=== PATIENT | male | born 1970 | race American Indian/Alaskan Native ===

== ENCOUNTER 2018-01-07 16:17 | Inpatient (IN) | payer MEDICARE ==
--- NOTE | 2018-01-07 17:12 | C.PDOC ---
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 Patient states that he snorts about 10-12 bags of heroin each day for the past 1 year. Patient reports that he had 1 psychiatric admission for a suicide attempt. Denies having headache, fever, chills, nausea, and vomiting. Time Seen by Provider: 01/07/18 16:39 Chief Complaint (Nursing): Substance Abuse History Per: Patient History/Exam Limitations: no limitations Past Medical History Reviewed: Historical Data, Nursing Documentation, Vital Signs Vital Signs: Last Vital Signs Temp 99.4 F 01/07/18 17:09 Pulse 90 01/07/18 17:09 Resp 16 01/07/18 17:09 BP 143/90 01/07/18 17:09 Pulse Ox 97 01/07/18 17:14 - Medical History PMH: HTN, Post Traumatic Stress Disorder Other Surgeries: Hx of surgeries Family History: States: No Known Family Hx - Social History Hx Alcohol Use: Yes Hx Substance Use: Yes - Immunization History Hx Tetanus Toxoid Vaccination: No Hx Influenza Vaccination: Yes (05/2017) Hx Pneumococcal Vaccination: Yes (05/2017) Review Of Systems Except As Marked, All Systems Reviewed And Found Negative. Constitutional: Negative for: Fever, Chills Gastrointestinal: Negative for: Nausea, Vomiting Neurological: Negative for: Headache Physical Exam - Physical Exam Appears: No Acute Distress Skin: Normal Color, Warm, Dry Head: Atraumatic, Normacephalic Eye(s): bilateral: Normal Inspection Nose: Normal Oral Mucosa: Moist Neck: Supple Chest: Symmetrical Cardiovascular: Rhythm Regular Respiratory: Normal Breath Sounds, No Rales, No Rhonchi, No Wheezing Gastrointestinal/Abdominal: Normal Exam, Soft, No Tenderness Neurological/Psych: Oriented x3, Normal Speech ED Course And Treatment - Laboratory Results Result Diagrams: 01/07/18 17:04 01/07/18 17:04 O2 Sat by Pulse Oximetry: 97 (RA) Pulse Ox Interpretation: Normal Medical Decision Making Medical Decision Making: Plan: --Labs --UA Disposition Counseled Patient/Family Regarding: Studies Performed, Diagnosis - Disposition Disposition: HOME/ ROUTINE Disposition Time: 18:01 Condition: STABLE Forms: [facility] (Namibian) - Clinical Impression Clinical Impression: Drug dependence - Scribe Statement The provider has reviewed the documentation as recorded by the Scribe Summen Jai Provider Attestation: All medical record entries made by the Lacie were at my direction and personally dictated by me. I have reviewed the chart and agree that the record accurately reflects my personal performance of the history, physical exam, medical decision making, and the department course for this patient. I have also personally directed, reviewed, and agree with the discharge instructions and disposition. Decision To Admit - Pt Status Changed To: Hospital Disposition Of: Inpatient - Admit Certification Admit to Inpatient:: After my assessment, the patient will require hospitalization for at least two midnights. This is because of the severity of symptoms shown, intensity of services needed, and/or the medical risk in this patient being treated as an outpatient. - InPatient: Physician Admission Certification: I certify that this patient requires 2 or more midnights of care for the following reason:: needs inpatient detox - . Bed Request Type: Detox Patient Diagnosis: Drug dependence
[2018-01-07 17:23] LABS: ALB/GLOB RATIO 1.1 (1.0-2.1); ALBUMIN 4.4 g/dL (3.5-5.0); ALT/SGPT 24 U/L (21-72); AST/SGOT 26 U/L (17-59); BLOOD UREA NITROGEN 15 mg/dL (9-20); CALCIUM 9.3 mg/dl (8.6-10.4); GFR AFRICAN-AMERICAN > 60; GFR NON-AFRICAN AMERICAN > 60
[2018-01-07 17:24] LABS: BASO # 0.1 K/uL (0.0-0.2); BASO % 0.8 % (0.0-2.0); EOS # 0.1 K/uL (0.0-0.7); EOS % 2.2 % (0.0-4.0); HEMOGLOBIN 13.3 g/dL (12.0-18.0); LYMPH # 2.8 K/uL (1.0-4.3); LYMPH % 41.9 % (20.0-40.0); MEAN CELL VOLUME 91.8 fL (80.0-94.0); MEAN CORPUSCULAR HEMOGLOBIN 30.9 pg (27.0-31.0); MEAN CORPUSCULAR HGB CONC 33.7 g/dL (33.0-37.0); MEAN PLATELET VOLUME 8.7 fL (7.2-11.7); MONO # 0.5 K/uL (0.0-0.8); MONO % 6.8 % (0.0-10.0); NEUT # 3.3 K/uL (1.8-7.0); NEUT % 48.3 % (50.0-75.0); NRBC % 0.1 % (0.0-2.0); RBC 4.31 Mil/uL (4.40-5.90); RED CELL DISTRIBUTION WIDTH 15.2 % (11.5-14.5); WHITE BLOOD COUNT 6.8 K/uL (4.8-10.8)
[2018-01-07 17:49] LABS: SQUAMOUS EPITHIAL < 1 /hpf (0-5); URINE BILIRUBIN NEGATIVE (NEGATIVE); URINE BLOOD NEGATIVE (NEGATIVE); URINE CLARITY Clear (Clear); URINE COLOR Yellow (YELLOW); URINE GLUCOSE (UA) NORMAL (Normal); URINE LEUKOCYTE ESTERASE NEG Leu/uL (Negative); URINE PROTEIN NEGATIVE (NEGATIVE)
[2018-01-07 18:00] LABS: BARBITURATES, UR NEGATIVE (NEGATIVE); BENZODIAZEPINES, UR NEGATIVE (NEGATIVE); PHENCYCLIDINE, UR NEGATIVE (NEGATIVE)
[2018-01-07 18:01] LABS: OPIATES, UR POSITIVE (NEGATIVE)
--- NOTE | 2018-01-07 18:35 | PCM.BM ---
<Delmar Manley - Last Filed: 01/07/18 18:32> Treatment Plan Problems - Problems identified on initial assessmt potential for opiate withdrawal Date Initiated: 01/07/18 Time Initiated: 18:33 Status: Active potential for alcohol withdrawal Date Initiated: 01/07/18 Time Initiated: 18:34 Status: Active Treatment assets and liabiliti Patient Assests: cooperative, ADL independent, negotiates basic needs, cognitively intact Patient Liabilities: substance abuse, medical problems - Milieu Protocol Maintain good personal hygiene: daily Encourage regular showers, daily Remind patient to perform daily oral care, daily Assist patient to perform ADL's Conduct patient checks and document Observation sheet: Q15 minutes Maintain personal safety: every shift Educate patient to report safety concerns to staff, every shift Monitor environment for contraband/sharps Medication safety: Monitor for expected outcome, potential side effects: every shift, Assess barriers to learning: every shift, Assess readiness for medication education: every shift <Althea Benitez - Last Filed: 01/08/18 20:05> - Diagnosis (1) Opioid use disorder, severe, dependence Status: Acute Interventions: 01/08/18 20:05 * Assess 7x/week regarding severity of withdrawal * Educate regarding risks, benefits, side effects and alternatives of medications * Use Motivational Interviewing for abstinence * Use CBT for relapse prevention * Medication management for withdrawal symptoms * Encourage medication assisted treatment * (2) Alcohol use disorder, severe, dependence Status: Acute Interventions: 01/08/18 20:05 * Assess 7x/week regarding severity of withdrawal * Educate regarding risks, benefits, side effects and alternatives of medications * Use Motivational Interviewing for abstinence * Use CBT for relapse prevention * Medication management for withdrawal symptoms * Encourage medication assisted treatment * <Rebecca Terrell - Last Filed: 01/11/18 17:50> Family Contact Family involvement: Patient does not wish Family/SO involvement Family contact: Patient declines to allow family contact at present - Goals for Treatment Patient goals for treatment: "I want to go to an [facility] in [place], [place]." Discharge/Continuing Care - Education Needs Education Needs: Patient Medication, Patient Diagnosis/Disease Process, Patient Coping Skills, Patient Placement options, Patient Community resources - Discharge Discharge Criteria: Free of Suicidal thoughts, Normal sleep pattern, Ability to care for self, Reduction of target symptoms Discharge to:: Home - Treatment Team Participation Discussed with Family/SO: No Was Patient/Family/SO present at Treatment Team Meeting: Yes
[2018-01-07] MEDS ORDERED: Prazosin HCL 2 mg PO STA (19:36)
[2018-01-07] MEDS ORDERED: Buprenorphine Hydrochloride 2 mg SL ONE ×2 (22:27→23:30)
[2018-01-07] MEDS ORDERED: Aluminum Hydroxide/Magnesium Hydroxide Susp (30 mL) PO PRN (22:30)
[2018-01-08] MEDS: Multiple Vitamins Tab PO SCH (11:11)
[2018-01-08] MEDS: Magnesium Hydroxide Susp 30 ml UD PO SCH ×2 (11:12→17:53)
--- NOTE | 2018-01-08 14:25 | PCM.PSYCH ---
Initial Psychiatric Evaluation - Initial Psychiatric Evaluation Type of Admission: Voluntary Legal Status: Capacity Chief Complaint (in patient's own words): "Heroin, alcohol..." History of Present Illness and Precipitating Events: The pt is seen, chart reviewed, case discussed He is a 47 yo AAM, w 4 children (17 to 25 y/o), lives with GF here but originally from [place] and will return in March. 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 Alcohol 1 pint karlos + 4-5 24-oz beers. 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[place]) Not rosanna/homi no AVH/del or felix Past psych hx: Outpt tx for PTSD Medical hx: HTN Family psych hx: Denied Current Medications: Active Medications Generic Name Dose Route Start Last Admin Trade Name Freq PRN Reason Stop Dose Admin Al Hydrox/Mg Hydrox/Simethicone 30 ml 01/07/18 22:30 Maalox 30 Ml PO TID PRN Indigestion / Heartburn Amlodipine Besylate 10 mg 01/08/18 10:00 01/08/18 11:11 Norvasc PO 10 mg DAILY [facility] Administration Chlordiazepoxide 25 mg 01/08/18 00:21 Librium PO Q4H PRN Alcohol Withdrawal Chlordiazepoxide 50 mg 01/08/18 06:00 01/08/18 13:11 Librium PO 01/13/18 05:59 Not Given Q6H [facility] Taper Clonidine HCl 0.1 mg 01/07/18 19:41 Catapres PO Q8 PRN COWS Score More or Equal to 5 Folic Acid 1 mg 01/08/18 10:00 01/08/18 11:10 Folic Acid PO 1 mg DAILY [facility] Administration Hydroxyzine HCl 50 mg 01/07/18 22:30 01/08/18 01:33 Atarax PO 50 mg Q6H PRN Administration Anxiety Loperamide HCl 2 mg 01/07/18 19:39 Imodium PO Q8 PRN Diarrhea Losartan Potassium 100 mg 01/08/18 10:00 01/08/18 11:11 Cozaar PO 100 mg DAILY [facility] Administration Magnesium Hydroxide 30 ml 01/08/18 10:00 01/08/18 11:12 Milk Of Magnesia PO 01/10/18 10:01 30 ml BID [facility] Administration Multivitamins 1 tab 01/08/18 10:00 01/08/18 11:11 Hexavitamin PO 1 tab DAILY [facility] Administration Nicotine 1 patch 01/08/18 10:00 01/08/18 11:12 Nicoderm Cq TD 1 patch DAILY [facility] Administration Ondansetron HCl 4 mg 01/07/18 19:39 01/08/18 00:18 Zofran Tab PO 4 mg Q8 PRN Administration Nausea/Vomiting Prazosin HCl 2 mg 01/08/18 22:00 Minipress PO HS [facility] Thiamine HCl 100 mg 01/08/18 10:00 01/08/18 11:10 Vitamin B1 Tab PO 100 mg DAILY [facility] Administration Trazodone HCl 100 mg 01/07/18 22:30 01/08/18 00:18 Desyrel PO 100 mg HS PRN Administration Insomnia Past Psychiatric History - Past Psychiatric History Previous Treatment History: Intensive Outpatient Pertinent Medical Hx (Current Medical&Sleep Prob, Allergies): Allergies Allergy/AdvReac Type Severity Reaction Status Date / Time codeine Allergy Severe ANAPHYLAXIS Verified 01/07/18 16:30 Losartan [Cozaar] 100 mg PO DAILY 01/07/18 Mirtazapine [Remeron] 45 mg PO HS 01/07/18 Prazosin HCL [Minipress] 2 mg PO HS 01/07/18 QUEtiapine [SEROquel] 100 mg PO DAILY 01/07/18 QUEtiapine [SEROquel] 300 mg PO HS 01/07/18 amLODIPine [Norvasc] 10 mg PO DAILY 01/07/18 Review of Systems - Psychiatric Psychiatric: Abnormal Sleep Pattern, Anxiety, Difficulty Concentrating. absent : Hallucinations, Homicidal Ideation, Suicidal Ideation Mental Status Examination - Personal Presentation Personal Presentation: Looks stated age - Affect Affect: Constricted - Motor Activity Motor Activity: Calm - Reliability in Providing Information Reliability in Providing Information: Good - Speech Speech: Organized - Mood Mood: Depressed, Anxious - Formal Thought Process Formal Thought Process: No Impairment - Cognitive Functions Orientation: Person, Place, Situation, Time Sensorium: Alert Attention/Concentration: Attentive Estimate of Intelligence: Average Judgement: Intact, as evidence by: Insight regarding need for hospitalization Memory: Recent intact, as evidence by: Ability to recall events of the day, Remote intact, as evidenced by: Abilit to recall sig. life events - Risk Risk: Withdrawal, Diminished functioning - Strength & Assets Inventory Strength & Assets Inventory: Family support, Cooperative - Limitations Limitations: Other DSM 5 DX - DSM 5 DSM 5 Diagnosis: Opioid use d/o - severe opioid withdrawal Alcohol use d/o- severe Alcohol withdrawal - Recommended/Plan of Treatment Treatment Recommendations and Plan of Treatment: Methadone detox (he first took 2 mg subutex but then changed his mind b/c of its "taste" - risks of switch discussed) Librium detox continue BP meds As needed medications Gabapentin for augmentation if needed All risks, benefits and alternatives of medications, including no medications, discussed and the patient understood and agreed. Attend groups and activities Supportive therapy and psychoeducation AR for abstinence CBT for relapse prevention Encourage MAT Refer to rehab or IOP Attend self-help groups as well AR for smoking cessation and patch if needed 34 min Projected ELOS: 5-6 days Prognosis: good w treatment - Smoking Cessation Smoking Cessation Initiated: Yes
[2018-01-08] MEDS: Prazosin HCL 2 mg PO SCH (21:27)
[2018-01-09] MEDS: Multiple Vitamins Tab PO SCH (10:13)
[2018-01-09] MEDS: Magnesium Hydroxide Susp 30 ml UD PO SCH ×2 (10:16→17:01)
--- NOTE | 2018-01-09 13:46 | PCM.PYCHPN ---
Psychiatric Progress Note - Psychiatric Progress Note Patient seen today, length of contact: 15 minutes Patient Chief Complaint: "I'm Ok" Problems Identified/Issues Discussed: The pt is seen, chart reviewed, case discussed with staff. The pt is compliant with medications and reports no side-effects. Symptoms are improving but needs more time to stabilize. Pt stated that he was on Seroquel 400 mg po HS and Remeron. After care discussed, support and psychoeducation given. DSM 5 Symptoms Update: Opioid use disorder, dependence, withdrawal symptoms. Medication Change: Yes (Methadone taper) Medical Record Reviewed: Yes Mental Status Examination - Cognitive Function Orientation: Person, Place, Situation, Time Memory: Intact Attention: Poor Concentration: Poor Association: WNL Fund of Knowledge: WNL Decription of patient's judgement and insights: fair/fair - Mood Mood: Depressed, Anxious - Affect Affect: Constricted - Speech Speech: Appropriate - Formal Thought Process Formal Thought Process: No Impairment Psychotic Thoughts and Behaviors: denied - Suicidal Ideation Suicidal Ideation: No Plan: denied - Homicidal Ideation Homicidal Ideation: No Plan: denied Goal/Treatment Plan - Goal/Treatment Plan Need for Continued Stay: Discharge may exacerbated symptoms Progress Toward Problem(s) and Goals/Treatment Plan: Methadone/Librium detox Increase Seroquel 150 mg po HS Gabapentin for augmentation As needed meds and vitamins Attend groups and activities CT for abstinence and CBT for relapse prevention Support and psychoeducation
[2018-01-09 13:52] VITALS: O2SAT 98
[2018-01-09] MEDS: Prazosin HCL 2 mg PO SCH (21:19)
[2018-01-10] MEDS: Magnesium Hydroxide Susp 30 ml UD PO SCH (09:08)
[2018-01-10] MEDS: Multiple Vitamins Tab PO SCH (09:08)
--- NOTE | 2018-01-10 14:22 | CP.PCM.CON ---
<Samson Peters - Last Filed: 01/10/18 21:34> History of Present Illness - History of Present Illness History of Present Illness: PGY02 consult note for Dr Donald's service: CC: chest pain HPI: Patient is a 47 year old AA male, with PMHx of HTN, TIA (2015), carpal tunnel syndrome, and cervical disc herniations presenting on 5E psychiatric floor after complaining of chest pain. Chest pain began @ 9:30am "while lying in bed" after eating breakfast of ham and eggs. He reports suddenly while in bed experiencing "hot feeling" all over his body, and a sharp "burning sensation" in his substernal chest. Pain/heat sensation traveled from "the middle of his chest to his left arm, down his back and into his left leg." At the same time patient states he began to sweat, had difficulty swallowing, and shortness of breath. Patient states sensation lasted "45mins to 1 hour." The chest pain went away but then returned after lunch with the same symptoms. When symptoms returned patient alerted nursing staff. Pain made worse with deep inspiration, and palpation of his chest. Denies ever experiencing this type of pain before. Patient states he is able to walk greater than >5 blocks without SOB. He denies swelling in his legs or needing to use multiple pillows at night to sleep. Patient admits not following low fat, low salt diet suggested by previous PMD. He denies reflux symptoms, weakness in his extremities, facial droop, or dysphasia. 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 absent: Edema, Palpitations - Respiratory Respiratory: absent: Cough, Dyspnea on Exertion - Gastrointestinal Gastrointestinal: Dysphagia. absent: Abdominal Pain, Nausea, Vomiting - Genitourinary Genitourinary: absent: Dysuria - Musculoskeletal Musculoskeletal: Numbness, Tingling - Integumentary Integumentary: absent: Wounds - Neurological Neurological: Numbness, Tingling. absent: Confusion, Headaches, Weakness - Psychiatric Psychiatric: Depression. absent: Anxiety Past Patient History - Past Medical History & Family History Past Medical History?: Yes - Past Social History Smoking Status: Light Smoker < 10 Cigarettes Daily - CARDIAC Hx Hypertension: Yes - PULMONARY Hx Tuberculosis: No - NEUROLOGICAL HX Cerebrovascular Accident: No Hx Seizures: No - RENAL Hx Chronic Kidney Disease: No - ENDOCRINE/METABOLIC Hx Endocrine Disorders: No - HEMATOLOGICAL/ONCOLOGICAL Hx Blood Disorders: No Hx Cancer: No Hx Human Immunodeficiency Virus (HIV): No - INTEGUMENTARY Hx Dermatological Problems: No - MUSCULOSKELETAL/RHEUMATOLOGICAL Hx Degenerative Joint Disease: Yes Hx Falls: No Other/Comment: c-5 c-7 disectomy - GASTROINTESTINAL Hx Gastrointestinal Disorders: No - GENITOURINARY/GYNECOLOGICAL Hx Genitourinary Disorders: No Hx Sexually Transmitted Disorders: No - PSYCHIATRIC Hx Substance Use: Yes (heroine inhaled) - SURGICAL HISTORY Hx Surgeries: Yes Hx Joint Replacement: Yes Hx Orthopedic Surgery: Yes (C5-7, Left knee) - ANESTHESIA Hx Anesthesia: Yes Hx Anesthesia Reactions: No Meds Allergies/Adverse Reactions: Allergies Allergy/AdvReac Type Severity Reaction Status Date / Time codeine Allergy Severe ANAPHYLAXIS Verified 01/07/18 16:30 - Medications Medications: Current Medications Al Hydrox/Mg Hydrox/Simethicone (Maalox 30 Ml) 30 ml PO TID PRN PRN Reason: Indigestion / Heartburn Amlodipine Besylate (Norvasc) 10 mg PO DAILY [facility] Last Admin: 01/10/18 09:07 Dose: 10 mg Chlordiazepoxide (Librium) 25 mg PO Q4H PRN PRN Reason: Alcohol Withdrawal Chlordiazepoxide (Librium) 50 mg PO Q8H [facility] PRN Reason: Taper Stop: 01/13/18 05:59 Last Admin: 01/10/18 13:03 Dose: 50 mg Clonidine HCl (Catapres) 0.1 mg PO Q8 PRN PRN Reason: COWS Score More or Equal to 5 Last Admin: 01/08/18 15:33 Dose: 0.1 mg Folic Acid (Folic Acid) 1 mg PO DAILY [facility] Last Admin: 01/10/18 09:08 Dose: 1 mg Hydroxyzine HCl (Atarax) 50 mg PO Q6H PRN PRN Reason: Anxiety Last Admin: 01/10/18 13:03 Dose: 50 mg Loperamide HCl (Imodium) 2 mg PO Q8 PRN PRN Reason: Diarrhea Losartan Potassium (Cozaar) 100 mg PO DAILY [facility] Last Admin: 01/10/18 09:08 Dose: 100 mg Methadone HCl (Methadone) 15 mg PO DAILY [facility] PRN Reason: Taper Stop: 01/13/18 11:29 Last Admin: 01/10/18 09:08 Dose: 20 mg Mirtazapine (Remeron) 15 mg PO [facility] Last Admin: 01/09/18 21:19 Dose: 15 mg Multivitamins (Hexavitamin) 1 tab PO DAILY [facility] Last Admin: 01/10/18 09:08 Dose: 1 tab Nicotine (Nicoderm Cq) 1 patch TD DAILY [facility] Last Admin: 01/10/18 09:09 Dose: 1 patch Ondansetron HCl (Zofran Tab) 4 mg PO Q8 PRN PRN Reason: Nausea/Vomiting Last Admin: 01/08/18 15:33 Dose: 4 mg Prazosin HCl (Minipress) 2 mg PO [facility] Last Admin: 01/09/18 21:19 Dose: Not Given Quetiapine Fumarate (Seroquel) 150 mg PO HS [facility] Last Admin: 01/09/18 21:19 Dose: 150 mg Thiamine HCl (Vitamin B1 Tab) 100 mg PO DAILY [facility] Last Admin: 01/10/18 09:08 Dose: 100 mg Trazodone HCl (Desyrel) 100 mg PO HS PRN PRN Reason: Insomnia Last Admin: 01/08/18 00:18 Dose: 100 mg Physical Exam - Constitutional Appears: Non-toxic, No Acute Distress - Head Exam Head Exam: ATRAUMATIC, NORMAL INSPECTION - Eye Exam Eye Exam: EOMI. absent: Scleral icterus Pupil Exam: PERRL - ENT Exam ENT Exam: Mucous Membranes Moist - Neck Exam Neck exam: Positive for: Full Rom - Respiratory Exam Respiratory Exam: Chest Wall Tenderness (diffuse left chest), Clear to Auscultation Bilateral, NORMAL BREATHING PATTERN. absent: Rales, Rhonchi, Wheezes - Cardiovascular Exam Cardiovascular Exam: REGULAR RHYTHM, +S1, +S2 Additional comments: PMI non-displaced reproducible anterior wall chest pain - GI/Abdominal Exam GI & Abdominal Exam: Normal Bowel Sounds, Soft. absent: Distended, Tenderness - Extremities Exam Extremities exam: Positive for: normal inspection. Negative for: pedal edema, tenderness - Back Exam Back exam: absent: CVA tenderness (L), CVA tenderness (R) - Neurological Exam Neurological exam: Alert, Oriented x3 - Psychiatric Exam Psychiatric exam: Normal Affect, Normal Mood - Skin Skin Exam: Normal Color, Warm Results - Vital Signs Recent Vital Signs: Last Vital Signs Temp 98.1 F 01/10/18 13:10 Pulse 97 H 01/10/18 13:10 Resp 18 01/10/18 13:10 BP 115/63 01/10/18 13:10 Pulse Ox 98 01/09/18 13:51 - Labs Result Diagrams: 01/07/18 17:04 01/07/18 17:04 Assessment & Plan - Assessment and Plan (Free Text) Plan: Chest pain continue to monitor on psych reproducible chest pain troponin negative x 1 -f/u troponin Q6H x 2 EKG (01/10/18): NSR @ [address], [address]/T wave changes, LVH - f/u additional EKG this evening and tomorrow AM f/u ECHO HTN Norvasc 10mg PO Daily Clonidine 0.1 mg PO Q8H Cozaar 100mg PO Daily Prazosin 2mg PO HS Hx of TIA Per pt history of TIA in 2016 Benign neuro exam, no focal weakness Start Crestor 5mg PO HS Start ASA 81mg PO daily Alcohol/Opiate abuse Mgmt per psych Samson Peters PGY-2 D/w Dr. Nicky Donald <Joaquin Donald - Last Filed: 01/10/18 22:04> Meds - Medications Medications: Current Medications Al Hydrox/Mg Hydrox/Simethicone (Maalox 30 Ml) 30 ml PO TID PRN PRN Reason: Indigestion / Heartburn Amlodipine Besylate (Norvasc) 10 mg PO DAILY [facility] Last Admin: 01/10/18 09:07 Dose: 10 mg Aspirin (Aspirin Chewable) 81 mg PO DAILY [facility] Chlordiazepoxide (Librium) 25 mg PO Q4H PRN PRN Reason: Alcohol Withdrawal Chlordiazepoxide (Librium) 50 mg PO Q8H [facility] PRN Reason: Taper Stop: 01/13/18 05:59 Last Admin: 01/10/18 21:23 Dose: 50 mg Clonidine HCl (Catapres) 0.1 mg PO Q8 PRN PRN Reason: COWS Score More or Equal to 5 Last Admin: 01/08/18 15:33 Dose: 0.1 mg Folic Acid (Folic Acid) 1 mg PO DAILY [facility] Last Admin: 01/10/18 09:08 Dose: 1 mg Hydroxyzine HCl (Atarax) 50 mg PO Q6H PRN PRN Reason: Anxiety Last Admin: 01/10/18 13:03 Dose: 50 mg Loperamide HCl (Imodium) 2 mg PO Q8 PRN PRN Reason: Diarrhea Losartan Potassium (Cozaar) 100 mg PO DAILY [facility] Last Admin: 01/10/18 09:08 Dose: 100 mg Methadone HCl (Methadone) 15 mg PO DAILY [facility] PRN Reason: Taper Stop: 01/13/18 11:29 Last Admin: 01/10/18 09:08 Dose: 20 mg Mirtazapine (Remeron) 15 mg PO HS [facility] Last Admin: 01/10/18 21:24 Dose: 15 mg Multivitamins (Hexavitamin) 1 tab PO DAILY [facility] Last Admin: 01/10/18 09:08 Dose: 1 tab Nicotine (Nicoderm Cq) 1 patch TD DAILY [facility] Last Admin: 01/10/18 09:09 Dose: 1 patch Ondansetron HCl (Zofran Tab) 4 mg PO Q8 PRN PRN Reason: Nausea/Vomiting Last Admin: 01/08/18 15:33 Dose: 4 mg Prazosin HCl (Minipress) 2 mg PO HS [facility] Last Admin: 01/10/18 21:29 Dose: 2 mg Quetiapine Fumarate (Seroquel) 150 mg PO HS [facility] Last Admin: 01/10/18 21:24 Dose: 150 mg Rosuvastatin Calcium (Crestor) 5 mg PO HS [facility] Last Admin: 01/10/18 21:23 Dose: 5 mg Thiamine HCl (Vitamin B1 Tab) 100 mg PO DAILY [facility] Last Admin: 01/10/18 09:08 Dose: 100 mg Trazodone HCl (Desyrel) 100 mg PO HS PRN PRN Reason: Insomnia Last Admin: 01/08/18 00:18 Dose: 100 mg Results - Vital Signs Recent Vital Signs: Last Vital Signs Temp 98.1 F 01/10/18 13:10 Pulse 88 01/10/18 16:09 Resp 18 01/10/18 13:10 BP 125/73 01/10/18 16:09 Pulse Ox 98 01/09/18 13:51 - Labs Result Diagrams: 01/07/18 17:04 01/07/18 17:04 Labs: Laboratory Results - last 24 hr 01/10/18 01/10/18 14:11 19:30 Troponin I < 0.0120 < 0.0120 Attending/Attestation - Attestation I have personally seen and examined this patient.: Yes I have fully participated in the care of the patient.: Yes I have reviewed all pertinent clinical information: Yes Notes (Text): 01/10/18 22:03 Patient was seen and examined at 8:30 PM History, Exam, Assessment and Plan were discussed with resident. Joaquin Donald D.O.
--- NOTE | 2018-01-10 17:06 | PCM.PYCHPN ---
Psychiatric Progress Note - Psychiatric Progress Note Patient seen today, length of contact: 15 minutes Patient Chief Complaint: "I have chronic suicidal thoughts Problems Identified/Issues Discussed: The pt is seen, chart reviewed, case discussed with staff. The pt stated that he is suffering from depression for more than 1 year. He reproted worsening of depressive symptoms at [facility]ox unit. He contracted for safety. He had chronic passive suicidal ideation, but no intent or plan. He reported he had TIA in the past. He still has tingling sensation on his one side of the face and left arm and hand. He was seen by neurologist in the past for these complaints. The pt is compliant with medications and reports no side-effects. Symptoms are improving but needs more time to stabilize. Pt stated that he was on Seroquel 400 mg po HS and Remeron. However, pharmacy informed that his last prescription was filled in 08/2017. After care discussed, support and psychoeducation given. DSM 5 Symptoms Update: MDD, RECURRENT, Opioid dependence, severe Opioid withdrawal Medication Change: Yes (Methadone taper) Medical Record Reviewed: Yes Consults ordered or reviewed: consulted medicine for his chest pain consulted neurology for his chronic numbness and tingling sensation over face and arm area Mental Status Examination - Cognitive Function Orientation: Person, Place, Situation, Time Memory: Intact Attention: Poor Concentration: Poor Association: WNL Fund of Knowledge: WN Decription of patient's judgement and insights: fair/fair Addtional comments: Superficially cooperative - Mood Mood: Depressed, Anxious - Affect Affect: Constricted - Speech Speech: Appropriate - Formal Thought Process Formal Thought Process: No Impairment Psychotic Thoughts and Behaviors: denied - Suicidal Ideation Suicidal Ideation: No Plan: He has passive suicidal ideation on and off for 1 1/2 year. No access to guns, no plan and no intent - Homicidal Ideation Homicidal Ideation: No Plan: Denied Goal/Treatment Plan - Goal/Treatment Plan Need for Continued Stay: Discharge may exacerbated symptoms Progress Toward Problem(s) and Goals/Treatment Plan: Methadone/Librium detox Increase Seroquel 150 mg po HS Gabapentin for augmentation As needed meds and vitamins Attend groups and activities [place] for abstinence and CBT for relapse prevention Support and psychoeducation Will f/u medicine team recommendations and EKG result. Estimated Date of D/C: 01/14/18 - Smoking Cessation Smoking Cessation Initiated: Yes
[2018-01-10] MEDS: Prazosin HCL 2 mg PO SCH (21:29)
[2018-01-11 06:31] VITALS: RESP 20
--- NOTE | 2018-01-11 07:56 | CP.PCM.PN ---
<Munira Gooden - Last Filed: 01/11/18 17:24> Subjective - Date & Time of Evaluation Date of Evaluation: 01/11/18 Time of Evaluation: 07:00 - Subjective Subjective: Medicine Progress Note: Patient was seen and examined at bedside in the AM. Patient states he has chest tenderness when pressed in the middle of his chest. Patient states he had a stress test done in September 2017. Patient denies fever, nausea, vomiting , or cough. Patient states he is still smoking about 4-5 cigarettes per day but he is trying to stop. He states he quit in the past but his daughter was diagnosed with lymphoma and that was the way he found to cope with her diagnosis. Objective - Vital Signs/Intake and Output Vital Signs (last 24 hours): Temp Pulse Resp BP Pulse Ox 98 F 82 20 129/88 98 01/11/18 06:29 01/11/18 06:29 01/11/18 06:29 01/11/18 06:29 01/09/18 13:51 - Medications Medications: Current Medications Al Hydrox/Mg Hydrox/Simethicone (Maalox 30 Ml) 30 ml PO TID PRN PRN Reason: Indigestion / Heartburn Amlodipine Besylate (Norvasc) 10 mg PO DAILY [facility] Last Admin: 01/10/18 09:07 Dose: 10 mg Aspirin (Aspirin Chewable) 81 mg PO DAILY [facility] Chlordiazepoxide (Librium) 25 mg PO Q4H PRN PRN Reason: Alcohol Withdrawal Chlordiazepoxide (Librium) 50 mg PO Q12H [facility] PRN Reason: Taper Stop: 01/13/18 05:59 Last Admin: 01/11/18 05:35 Dose: 50 mg Clonidine HCl (Catapres) 0.1 mg PO Q8 PRN PRN Reason: COWS Score More or Equal to 5 Last Admin: 01/08/18 15:33 Dose: 0.1 mg Folic Acid (Folic Acid) 1 mg PO DAILY [facility] Last Admin: 01/10/18 09:08 Dose: 1 mg Hydroxyzine HCl (Atarax) 50 mg PO Q6H PRN PRN Reason: Anxiety Last Admin: 01/10/18 13:03 Dose: 50 mg Loperamide HCl (Imodium) 2 mg PO Q8 PRN PRN Reason: Diarrhea Losartan Potassium (Cozaar) 100 mg PO DAILY [facility] Last Admin: 01/10/18 09:08 Dose: 100 mg Methadone HCl (Methadone) 15 mg PO DAILY [facility] PRN Reason: Taper Stop: 01/13/18 11:29 Last Admin: 01/10/18 09:08 Dose: 20 mg Mirtazapine (Remeron) 15 mg PO HS [facility] Last Admin: 01/10/18 21:24 Dose: 15 mg Multivitamins (Hexavitamin) 1 tab PO DAILY [facility] Last Admin: 01/10/18 09:08 Dose: 1 tab Nicotine (Nicoderm Cq) 1 patch TD DAILY [facility] Last Admin: 01/10/18 09:09 Dose: 1 patch Ondansetron HCl (Zofran Tab) 4 mg PO Q8 PRN PRN Reason: Nausea/Vomiting Last Admin: 01/08/18 15:33 Dose: 4 mg Prazosin HCl (Minipress) 2 mg PO HS [facility] Last Admin: 01/10/18 21:29 Dose: 2 mg Quetiapine Fumarate (Seroquel) 150 mg PO HS [facility] Last Admin: 01/10/18 21:24 Dose: 150 mg Rosuvastatin Calcium (Crestor) 5 mg PO HS [facility] Last Admin: 01/10/18 21:23 Dose: 5 mg Thiamine HCl (Vitamin B1 Tab) 100 mg PO DAILY [facility] Last Admin: 01/10/18 09:08 Dose: 100 mg Trazodone HCl (Desyrel) 100 mg PO HS PRN PRN Reason: Insomnia Last Admin: 01/08/18 00:18 Dose: 100 mg - Labs Labs: 01/07/18 17:04 01/07/18 17:04 - Constitutional Appears: No Acute Distress - Head Exam Head Exam: ATRAUMATIC, NORMAL INSPECTION - Eye Exam Eye Exam: EOMI, Normal appearance. absent: Scleral icterus - ENT Exam ENT Exam: Mucous Membranes Moist - Respiratory Exam Respiratory Exam: Clear to Ausculation Bilateral, NORMAL BREATHING PATTERN. absent: Accessory Muscle Use, Rales, Rhonchi, Wheezes - Cardiovascular Exam Cardiovascular Exam: REGULAR RHYTHM, +S1, +S2 Additional comments: reproducible chest tenderness to palpation - GI/Abdominal Exam GI & Abdominal Exam: Soft, Normal Bowel Sounds. absent: Tenderness - Extremities Exam Extremities Exam: Normal Inspection. absent: Pedal Edema, Tenderness - Neurological Exam Neurological Exam: Alert, Awake, Oriented x3 - Psychiatric Exam Psychiatric exam: Flat Affect - Skin Skin Exam: Normal Color Assessment and Plan - Assessment and Plan (Free Text) Assessment: Chest pain secondary to osteochondritis continue to monitor on psych reproducible chest pain troponin negative x 3 EKG (01/10/18): NSR @ 80 bpm, No ST/T wave changes, LVH 2nd EKG (01/10/18):sinus tachycardia at 101bpm EKG (01/11/18): NSR @89 bpm ECHO (01/10/18): The ventricular function is normal. The left ventricular ejection fraction is within normal range. No regional wall motion abnormalities noted. Chest Xray (01/11/18): No active disease. D-dimer: <200 HTN Norvasc 10mg PO Daily Clonidine 0.1 mg PO Q8H Cozaar 100mg PO Daily Prazosin 2mg PO HS Hx of TIA Per pt history of TIA in 2016 Benign neuro exam, no focal weakness Start Crestor 5mg PO HS Start ASA 81mg PO daily Alcohol/Opiate abuse Mgmt per psych Smoking Cessation Discussed the various side effects of smoking on an individual's health. Discussed the benefits of smoking cessation. Medicine Team is signing off. Thank you for this consult. Please reconsult if necessary. Case discussed with Dr. Leora Gooden PGY-1 <Ladonna Corey V - Last Filed: 01/12/18 06:26> Objective - Vital Signs/Intake and Output Vital Signs (last 24 hours): Temp Pulse Resp BP Pulse Ox 98.1 F 66 20 94/62 L 98 01/12/18 06:19 01/12/18 06:19 01/12/18 06:19 01/12/18 06:19 01/09/18 13:51 - Medications Medications: Current Medications Al Hydrox/Mg Hydrox/Simethicone (Maalox 30 Ml) 30 ml PO TID PRN PRN Reason: Indigestion / Heartburn Amlodipine Besylate (Norvasc) 10 mg PO DAILY [facility] Last Admin: 01/11/18 09:51 Dose: 10 mg Aspirin (Aspirin Chewable) 81 mg PO DAILY [facility] Last Admin: 01/11/18 09:49 Dose: 81 mg Chlordiazepoxide (Librium) 25 mg PO Q4H PRN PRN Reason: Alcohol Withdrawal Chlordiazepoxide (Librium) 50 mg PO Q24H [facility] PRN Reason: Taper Stop: 01/13/18 05:59 Last Admin: 01/11/18 18:22 Dose: 50 mg Clonidine HCl (Catapres) 0.1 mg PO Q8 PRN PRN Reason: COWS Score More or Equal to 5 Last Admin: 01/08/18 15:33 Dose: 0.1 mg Folic Acid (Folic Acid) 1 mg PO DAILY [facility] Last Admin: 01/11/18 09:50 Dose: 1 mg Hydroxyzine HCl (Atarax) 50 mg PO Q6H PRN PRN Reason: Anxiety Last Admin: 01/10/18 13:03 Dose: 50 mg Loperamide HCl (Imodium) 2 mg PO Q8 PRN PRN Reason: Diarrhea Losartan Potassium (Cozaar) 100 mg PO DAILY [facility] Last Admin: 01/11/18 09:51 Dose: 100 mg Methadone HCl (Methadone) 10 mg PO DAILY [facility] PRN Reason: Taper Stop: 01/13/18 11:29 Last Admin: 01/11/18 09:49 Dose: 15 mg Mirtazapine (Remeron) 30 mg PO HS [facility] Last Admin: 01/11/18 22:43 Dose: 30 mg Multivitamins (Hexavitamin) 1 tab PO DAILY [facility] Last Admin: 01/11/18 09:49 Dose: 1 tab Nicotine (Nicoderm Cq) 1 patch TD DAILY [facility] Last Admin: 01/11/18 09:50 Dose: 1 patch Ondansetron HCl (Zofran Tab) 4 mg PO Q8 PRN PRN Reason: Nausea/Vomiting Last Admin: 01/08/18 15:33 Dose: 4 mg Prazosin HCl (Minipress) 2 mg PO HS [facility] Last Admin: 01/11/18 21:50 Dose: 2 mg Quetiapine Fumarate (Seroquel) 200 mg PO HS [facility] Last Admin: 01/11/18 21:50 Dose: 200 mg Rosuvastatin Calcium (Crestor) 5 mg PO HS [facility] Last Admin: 01/11/18 21:50 Dose: 5 mg Thiamine HCl (Vitamin B1 Tab) 100 mg PO DAILY [facility] Last Admin: 01/11/18 09:49 Dose: 100 mg Trazodone HCl (Desyrel) 100 mg PO HS PRN PRN Reason: Insomnia Last Admin: 01/11/18 21:50 Dose: 100 mg - Labs Labs: 01/07/18 17:04 01/07/18 17:04 Attending/Attestation - Attestation I have personally seen and examined this patient.: Yes I have fully participated in the care of the patient.: Yes I have reviewed all pertinent clinical information, including history, physical exam and plan: Yes Notes (Text): This is late computer entry for 01/11/18. Patient seen, examined, and case discussed with day-time resident. Patient reports he came to the hospital because heroin and karlos. Patient reports chest pain which is point tenderness at 4th intercostal space, which is reproducible on my exam. Patient denies hx of VA, family hx of VA, and reports he has completed stress test with his PMD/cardiology in Sep of this year which he reports is normal. Patient's cardiac enzymes are negative X3, and repeat EKG shows NSR. Patient has completed echocardiogram which shows is normal. Patient strongly encouraged to quit smoking. He reports he started smoking to cope with daughter's diagnoses of cancer, who is currently in remission. Patient open to smoking cessation aids and is aware of smoking risk including cancer. Patient had chest xray which official reports no active disease and d-dimer is negative. Medicine team to sign off. please reconsult if needed. Thank you.
[2018-01-11] MEDS: Multiple Vitamins Tab PO SCH (09:49)
--- NOTE | 2018-01-11 12:01 | CARD ---
APPROVED REPORT EKG Measurement Heart [id number] <Conclusion> Sinus tachycardia Minimal voltage criteria for LVH, may be normal variant Nonspecific T wave abnormality Abnormal ECG
--- NOTE | 2018-01-11 12:07 | CARD ---
APPROVED REPORT EKG Measurement Heart [id number] <Conclusion> Normal sinus rhythm Minimal voltage criteria for LVH, may be normal variant Nonspecific T wave abnormality Abnormal ECG
--- NOTE | 2018-01-11 12:26 | CARD ---
APPROVED REPORT EXAM: Two-dimensional and M-mode echocardiogram with Doppler and color Doppler. Other Information Quality : GoodRhythm : INDICATION Abnormal EKG/Arrhythmia Chest Pain 2D DIMENSIONS IVSd1.1 (0.7-1.1cm)LVDd4.0 (3.9-5.9cm) PWd1.1 (0.7-1.1cm)LVDs2.0 (2.5-4.0cm) FS (%) 49.8 %LVEF (%)70.0 (>50%) M-Mode DIMENSIONS Left Atrium (MM)3.25 (2.5-4.0cm)Aortic Root3.68 (2.2-3.7cm) Aortic Cusp Exc.2.48 (1.5-2.0cm) Mitral Valve MV E Vzngggec83.2cm/sMV A Dusdmtdj28.8cm/sE/A ratio1.0 TDI E/Lateral E'0.0E/Medial E'0.0 Tricuspid Valve TR Peak Paadvwhr321hg/sTR Peak Gr.07ciUbLJLG90ccVx LEFT VENTRICLE The left ventricle is normal size. There is normal left ventricular wall thickness. The left ventricular function is normal. The left ventricular ejection fraction is within the normal range. No regional wall motion abnormalities noted. The left ventricular diastolic function is normal. No left ventricle thrombus noted on this study. There is no ventricular septal defect visualized. There is no left ventricular aneurysm. There is no mass noted in the left ventricle. RIGHT VENTRICLE The right ventricle is normal size. There is normal right ventricular wall thickness. The right ventricular systolic function is normal. ATRIA The left atrium size is normal. The right atrium size is normal. The interatrial septum is intact with no evidence for an atrial septal defect. AORTIC VALVE The aortic valve is normal in structure and function. No aortic regurgitation is present. There is no aortic valvular stenosis. There is no aortic valvular vegetation. MITRAL VALVE The mitral valve is normal in structure and function. There is no evidence of mitral valve prolapse. There is no mitral valve stenosis. Mitral regurgitation is trace. TRICUSPID VALVE The tricuspid valve is normal in structure and function. There is mild tricuspid regurgitation. Right ventricular systolic pressure is estimated at less than 30 mmHg. There is no tricuspid valve prolapse or vegetation. There is no tricuspid valve stenosis. PULMONIC VALVE The pulmonary valve is normal in structure and function. There is no pulmonic valvular regurgitation. There is no pulmonic valvular stenosis. GREAT VESSELS The aortic root is normal in size. The ascending aorta is normal in size. The pulmonary artery is normal. The IVC is normal in size and collapses >50% with inspiration. PERICARDIAL EFFUSION The pericardium appears normal. There is no pleural effusion. <Conclusion> The left ventricular function is normal. The left ventricular ejection fraction is within the normal range. No regional wall motion abnormalities noted.
--- NOTE | 2018-01-11 13:46 | RAD ---
HISTORY: chest pain COMPARISON: No prior. FINDINGS: LUNGS: No active pulmonary disease. PLEURA: No significant pleural effusion identified, no pneumothorax apparent. CARDIOVASCULAR: Normal. OSSEOUS STRUCTURES: No significant abnormalities. VISUALIZED UPPER ABDOMEN: Normal. OTHER FINDINGS: None. IMPRESSION: No active disease.
--- NOTE | 2018-01-11 14:25 | PCM.PYCHPN ---
Psychiatric Progress Note - Psychiatric Progress Note Patient seen today, length of contact: 15 minutes Patient Chief Complaint: "Heroin, alcohol..." Problems Identified/Issues Discussed: The pt is seen, chart reviewed, case discussed with staff. The pt is compliant with medications and reports no side-effects. Symptoms are improving but needs more time to stabilize. After care discussed, support and psychoeducation given. He owns a rifle and a shotgun but he will given them to his brother in [place] , just as he did with his other gun He understood the risks. He has no SI or HI today He will return to [place] in January, not March Support given Medication Change: Yes (Methadone taper) Medical Record Reviewed: Yes Mental Status Examination - Cognitive Function Orientation: Person, Place, Situation, Time Memory: Intact Attention: Poor Concentration: Poor Association: WNL Fund of Knowledge: WNL - Mood Mood: Depressed, Anxious - Affect Affect: Constricted - Speech Speech: Appropriate - Formal Thought Process Formal Thought Process: No Impairment - Suicidal Ideation Suicidal Ideation: No - Homicidal Ideation Homicidal Ideation: No Goal/Treatment Plan - Goal/Treatment Plan Need for Continued Stay: Discharge may exacerbated symptoms Progress Toward Problem(s) and Goals/Treatment Plan: Methadone detox Librium detox continue BP meds As needed medications Gabapentin for augmentation if needed All risks, benefits and alternatives of medications, including no medications, discussed and the patient understood and agreed. Attend groups and activities Supportive therapy and psychoeducation [place] for abstinence CBT for relapse prevention Encourage MAT Refer to rehab or IOP Attend self-help groups as well [place] for smoking cessation and patch if needed Estimated Date of D/C: 01/14/18
[2018-01-11] MEDS: Prazosin HCL 2 mg PO SCH (21:50)
[2018-01-12 06:20] VITALS: PULSE 66; TEMP 98.1
--- NOTE | 2018-01-12 09:48 | PCM.PYCHDC ---
Mental Status Examination - Mental Status Examination Orientation: Person Discharge Summary - Discharge Note Laboratory Data: Abnormal Lab Results 01/11/18 16:47 D-Dimer, Quantitative < 200 Consultations:: List each consultation separately and include: 1. Reason for request. 2. Findings. 3. Follow-up Summary of Hospital Course include:: 1. Description of specific treatment plan utilized for patients during their course of treatmen. 2. Summarize the time- course for resolution of acute symptoms and/or regressed behaviors. 3. Describe issues identified and worked on during hospitalization. 4. Describe medication utilized. 5. Describe medical problems identified and treated. 6. Reassessment of suicide risk Summary of Hospital Course: The pt is seen, chart reviewed, case discussed He is a 47 yo AAM, w 4 children (17 to 25 y/o), lives with GF here but originally from [place] and will return in March. 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 Alcohol 1 pint karlos + 4-5 24-oz beers. 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) Not rosanna/homi no AVH/del or felix Past psych hx: Outpt tx for PTSD Medical hx: HTN Family psych hx: Denied - Diagnosis (1) Opioid use disorder, severe, dependence Current Visit: Yes Status: Acute (2) Alcohol use disorder, severe, dependence Current Visit: Yes Status: Acute - Final Diagnosis (DSM 5) Condition upon Discharge: STABLE Disposition: HOME/ ROUTINE Follow-up Treatment Plan: Methadone detox Librium detox continue BP meds As needed medications Gabapentin for augmentation if needed All risks, benefits and alternatives of medications, including no medications, discussed and the patient understood and agreed. Attend groups and activities Supportive therapy and psychoeducation [place] for abstinence CBT for relapse prevention Encourage MAT Refer to rehab or IOP Attend self-help groups as well [place] for smoking cessation and patch if needed Prescriptions/Medication Reconciliation: amLODIPine [Norvasc] 10 mg PO DAILY #30 tab Aspirin [Aspirin Chewable] 81 mg PO DAILY #30 chew Losartan [Cozaar] 100 mg PO DAILY #30 tab Mirtazapine [Remeron] 30 mg PO HS #30 tab Prazosin HCL [Minipress] 2 mg PO HS #30 cap QUEtiapine [SEROquel] 200 mg PO HS #30 tab Rosuvastatin Calcium [Crestor] 5 mg PO HS #30 tab traZODone [Desyrel] 100 mg PO HS PRN #30 tab PRN Reason: Insomnia
[2018-01-12] MEDS: Multiple Vitamins Tab PO SCH (10:06)
[2018-01-12 10:14] VITALS: BP 111/72
--- NOTE | 2018-01-12 12:16 | CARD ---
APPROVED REPORT EKG Measurement Heart [id number] ID [id number] <Conclusion> Normal sinus rhythm Nonspecific T wave abnormality Abnormal ECG
== END 2018-01-12 12:48 | disposition home or self-care (01) | DRG 885 ==
LOC: C.ER 16:17 → C.7D 18:02 → C.5E 01-09 14:12
PROVIDERS: ADMIT Psychiatry & Neurology Psychiatry; ATTEND Psychiatry & Neurology Psychiatry
PROC: HZ2ZZZZ Detoxification Services for Substance Abuse Treatment (ICD-10-PCS; principal; 2018-01-07)
DX: F33.9 Major depressive disorder, recurrent, unspecified (principal); F11.23 Opioid dependence with withdrawal; F10.239 Alcohol dependence with withdrawal, unspecified; F17.210 Nicotine dependence, cigarettes, uncomplicated; F43.10 Post-traumatic stress disorder, unspecified; I10 Essential (primary) hypertension; R13.10 Dysphagia, unspecified; Z96.652 Presence of left artificial knee joint; F06.4 Anxiety disorder due to known physiological condition

== ENCOUNTER 2018-04-18 17:39 | Inpatient (IN) | payer MEDICARE ==
[2018-04-18 19:06] LABS: BASO % 0.5 % (0.0-2.0); EOS # 0.2 K/uL (0.0-0.7); EOS % 2.5 % (0.0-4.0); HEMOGLOBIN 12.6 g/dL (12.0-18.0); LYMPH # 3.9 K/uL (1.0-4.3); LYMPH % 55.6 % (20.0-40.0); MEAN CELL VOLUME 92.6 fL (80.0-94.0); MEAN CORPUSCULAR HEMOGLOBIN 31.5 pg (27.0-31.0); MEAN PLATELET VOLUME 9.3 fL (7.2-11.7); MONO # 0.6 K/uL (0.0-0.8); MONO % 9.2 % (0.0-10.0); NEUT # 2.3 K/uL (1.8-7.0); NEUT % 32.2 % (50.0-75.0); RBC 4.01 Mil/uL (4.40-5.90); RED CELL DISTRIBUTION WIDTH 14.8 % (11.5-14.5)
[2018-04-18 19:07] LABS: SQUAMOUS EPITHIAL 1 /hpf (0-5); URINE BILIRUBIN NEGATIVE (NEGATIVE); URINE BLOOD NEGATIVE (NEGATIVE); URINE CLARITY Clear (Clear); URINE COLOR Yellow (YELLOW); URINE GLUCOSE (UA) NORMAL (Normal); URINE LEUKOCYTE ESTERASE NEG Leu/uL (Negative); URINE PROTEIN NEGATIVE (NEGATIVE); URINE UROBILINOGEN NORMAL mg/dL (0.2-1.0)
[2018-04-18 19:48] LABS: ALB/GLOB RATIO 1.4 (1.0-2.1); ALBUMIN 4.8 g/dL (3.5-5.0); ALT/SGPT 26 U/L (21-72); AST/SGOT 26 U/L (17-59); BLOOD UREA NITROGEN 10 mg/dL (9-20); CALCIUM 9.2 mg/dl (8.6-10.4); GFR NON-AFRICAN AMERICAN > 60
[2018-04-18 19:54] LABS: BARBITURATES, UR NEGATIVE (NEGATIVE); BENZODIAZEPINES, UR NEGATIVE (NEGATIVE); PHENCYCLIDINE, UR NEGATIVE (NEGATIVE)
[2018-04-18 19:55] LABS: OPIATES, UR POSITIVE (NEGATIVE)
--- NOTE | 2018-04-18 21:01 | C.PDOC ---
History Of Present Illness 47 year old male presents to the emergency department seeking detox from narcotics. Patient admits to extensively using oxycodone and heroin. Time Seen by Provider: 04/18/18 18:45 Chief Complaint (Nursing): Substance Abuse History Per: Patient History/Exam Limitations: no limitations Current Symptoms Are (Timing): Still Present Suicide/Self Injury Attempted (Context): None Modifying Factor(s): Narcotics (oxycodone), Other (heroin) Associated Symptoms: denies: Suicidal Thoughts, Suicidal Plan Past Medical History Reviewed: Historical Data, Nursing Documentation, Vital Signs Vital Signs: Last Vital Signs Temp 98.0 F 04/18/18 17:41 Pulse 78 04/18/18 17:41 Resp 18 04/18/18 17:41 BP 149/84 04/18/18 17:41 Pulse Ox 99 04/18/18 21:01 - Medical History PMH: HTN, Post Traumatic Stress Disorder, 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) Denies: Diabetes, Hepatitis, HIV, Chronic Kidney Disease, Sexually Transmitted Disease Surgical History: No Surg Hx - [facility] DETOXIFICATION SERVICES FOR SUBSTANCE ABUSE TREATMENT (01/07/18) Family History: States: No Known Family Hx - Social History Hx Alcohol Use: Yes Hx Substance Use: Yes - Immunization History Hx Tetanus Toxoid Vaccination: Yes Hx Influenza Vaccination: Yes (05/2017) Hx Pneumococcal Vaccination: Yes (05/2017) Review Of Systems Except As Marked, All Systems Reviewed And Found Negative. Cardiovascular: Negative for: Chest Pain Gastrointestinal: Negative for: Nausea, Vomiting Psych: Negative for: Suicidal ideation Physical Exam - Physical Exam Appears: Non-toxic, No Acute Distress, Other (large black male, somnilent) Skin: Warm, Dry Head: Atraumatic, Normacephalic Eye(s): bilateral: Normal Inspection, PERRL, EOMI, Other (pupils pinpoint) Oral Mucosa: Moist Neck: Normal, Supple Chest: Symmetrical Cardiovascular: Rhythm Regular, No Murmur Respiratory: Normal Breath Sounds, No Rales, No Rhonchi, No Wheezing Neurological/Psych: Oriented x3, Normal Speech, Normal Cognition ED Course And Treatment - Laboratory Results Result Diagrams: 04/18/18 18:55 04/18/18 18:55 Lab Interpretation: Abnormal (tox + opiates) O2 Sat by Pulse Oximetry: 99 (RA) Pulse Ox Interpretation: Normal Reevaluation Time: 21:43 Reassessment Condition: Unchanged - Physician Consult Information Outcome Of Conversation: 2144: d/w Crisis, ok to adm Medical Decision Making Medical Decision Making: Plan: Alcohol Serum Drug Screen CBC Urinalysis CMP Disposition Doctor Will See Patient In The: Hospital Counseled Patient/Family Regarding: Studies Performed, Diagnosis - Disposition Disposition: HOSPITALIZED Disposition Time: 21:45 Condition: GOOD Forms: [facility] (Setswana) - Clinical Impression Clinical Impression: Opioid use disorder, severe, dependence, Alcohol use disorder, severe, dependence - Scribe Statement The provider has reviewed the documentation as recorded by the Scribe (Claudy Fonseca) Provider Attestation: All medical record entries made by the Scribe were at my direction and personally dictated by me. I have reviewed the chart and agree that the record accurately reflects my personal performance of the history, physical exam, medical decision making, and the department course for this patient. I have also personally directed, reviewed, and agree with the discharge instructions and disposition.
--- NOTE | 2018-04-18 22:19 | PCM.BM ---
Treatment Plan Problems - Problems identified on initial assessmt potential for opiate withdrawal Date Initiated: 04/18/18 Time Initiated: 22:18 Status: Active Treatment assets and liabiliti Patient Assests: cooperative, ADL independent, negotiates basic needs, cognitively intact Patient Liabilities: substance abuse, medical problems - Milieu Protocol Maintain good personal hygiene: daily Encourage regular showers, daily Remind patient to perform daily oral care, daily Assist patient to perform ADL's Conduct patient checks and document Observation sheet: Q15 minutes Maintain personal safety: every shift Educate patient to report safety concerns to staff, every shift Monitor environment for contraband/sharps Medication safety: Monitor for expected outcome, potential side effects: every shift, Assess barriers to learning: every shift, Assess readiness for medication education: every shift
[2018-04-18] MEDS ORDERED: Aluminum Hydroxide/Magnesium Hydroxide Susp (30 mL) PO PRN (22:48)
--- NOTE | 2018-04-20 10:38 | PCM.PSYCH ---
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 He is known from a December detox He admits to using 20 bags intranasal heroin (up from 15 in December) x2 years and Oxy's for one year before that. He then admitted that he also takes 4-5 of the 30 mg pills. Alcohol 1 pint karlos + 61/2 pack beers. 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[place]) Not rosanna/homi no AVH/del or felix Past psych hx: Outpt tx for PTSD and inpatient in our unit for depression and SI , which he denies now Medical hx: HTN Family psych hx: Denied Current Medications: Active Medications Generic Name Dose Route Start Last Admin Trade Name Freq PRN Reason Stop Dose Admin Al Hydrox/Mg Hydrox/Simethicone 30 ml 04/18/18 22:48 Maalox 30 Ml PO TID PRN Indigestion / Heartburn Amlodipine Besylate 10 mg 04/19/18 10:00 04/20/18 09:44 Norvasc PO 10 mg DAILY WOJCIECH Administration Aspirin 81 mg 04/19/18 10:00 04/20/18 09:44 Aspirin Chewable PO 81 mg DAILY WOJCIECH Administration Chlordiazepoxide 25 mg 04/19/18 21:14 04/19/18 21:23 Librium PO 25 mg Q6 PRN Administration alcohol withdrawal Clonidine HCl 0.1 mg 04/18/18 22:48 Catapres PO Q8 PRN COWS Score More or Equal to 5 Loperamide HCl 2 mg 04/18/18 22:48 Imodium PO Q8 PRN Diarrhea Losartan Potassium 100 mg 04/19/18 10:00 04/20/18 09:44 Cozaar PO 100 mg DAILY WOJCIECH Administration Methadone HCl 20 mg 04/20/18 10:00 04/20/18 09:44 Methadone PO 04/24/18 09:59 20 mg Q24H WOJCIECH Administration Taper Mirtazapine 30 mg 04/18/18 23:00 04/19/18 21:13 Remeron PO 30 mg HS WOJCIECH Administration Ondansetron HCl 4 mg 04/18/18 22:48 04/20/18 06:35 Zofran Tab PO 4 mg Q8 PRN Administration Nausea/Vomiting Past Psychiatric History - Past Psychiatric History Previous Treatment History: Inpatient Pertinent Medical Hx (Current Medical&Sleep Prob, Allergies): Allergies Allergy/AdvReac Type Severity Reaction Status Date / Time codeine Allergy Severe ANAPHYLAXIS Verified 04/18/18 17:44 Losartan [Cozaar] 100 mg PO DAILY 01/07/18 Mirtazapine [Remeron] 45 mg PO HS 01/07/18 Prazosin HCL [Minipress] 2 mg PO HS 01/07/18 QUEtiapine [SEROquel] 100 mg PO DAILY 01/07/18 QUEtiapine [SEROquel] 300 mg PO HS 01/07/18 amLODIPine [Norvasc] 10 mg PO DAILY 01/07/18 Aspirin [Aspirin Chewable] 81 mg PO DAILY #30 chew 01/12/18 Losartan [Cozaar] 100 mg PO DAILY #30 tab 01/12/18 Mirtazapine [Remeron] 30 mg PO HS #30 tab 01/12/18 Prazosin HCL [Minipress] 2 mg PO HS #30 cap 01/12/18 QUEtiapine [SEROquel] 200 mg PO HS #30 tab 01/12/18 Rosuvastatin Calcium [Crestor] 5 mg PO HS #30 tab 01/12/18 amLODIPine [Norvasc] 10 mg PO DAILY #30 tab 01/12/18 traZODone [Desyrel] 100 mg PO HS PRN #30 tab 01/12/18 Review of Systems - Neurological Neurological: UNREMARKABLE - Psychiatric Psychiatric: Abnormal Sleep Pattern, Anxiety, Depression, Difficulty Concentrating. absent: Hallucinations, Homicidal Ideation, Suicidal Ideation Mental Status Examination - Personal Presentation Personal Presentation: Looks older than stated age - Affect Affect: Constricted - Motor Activity Motor Activity: Calm - Reliability in Providing Information Reliability in Providing Information: Good - Speech Speech: Organized - Mood Mood: Depressed, Anxious - Formal Thought Process Formal Thought Process: No Impairment - Cognitive Functions Orientation: Person, Place, Situation, Time Sensorium: Alert Attention/Concentration: Easily distracted Estimate of Intelligence: Average Judgement: Intact, as evidence by: Insight regarding need for hospitalization Memory: Recent intact, as evidence by: Ability to recall events of the day, Remote intact, as evidenced by: Abilit to recall sig. life events - Risk Risk: Withdrawal, Diminished functioning - Strength & Assets Inventory Strength & Assets Inventory: Employment history, Cooperative - Limitations Limitations: Other DSM 5 DX - DSM 5 DSM 5 Diagnosis: Opioid withdrawal Opioid use disorder, severe Alcohol use disorder, severe alcohol withdrawal Sedative, hypnotic or anxiolytic use disorder, severe Sedative, hypnotic or anxiolytic withdrawal Major depressive disorder, recurrent, moderate - Recommended/Plan of Treatment Treatment Recommendations and Plan of Treatment: Taper with librium and methadone Gabapentin for augmentation Remeron for depression As needed medications All risks, benefits and alternatives of the meds discussed, and the pt agreed and understood. Attend groups and activities Supportive therapy and psychoeducation [place] for abstinence CBT for relapse prevention Encourage MAT Refer to rehab or IOP, and self-help groups Smoking cessation with [place] Nicotine patch if needed 34 min Projected ELOS: 4-5 days Prognosis: good w treatment - Smoking Cessation Smoking Cessation Initiated: Yes
--- NOTE | 2018-04-20 13:28 | PCM.PYCHPN ---
Psychiatric Progress Note - Psychiatric Progress Note Patient seen today, length of contact: 16 min Patient Chief Complaint: "I am withdrawing still" Problems Identified/Issues Discussed: The pt is seen, chart reviewed, case discussed with staff. The pt is compliant with medications and reports no side-effects. Symptoms are improving but needs more time to stabilize. Pt attends groups and activities. Support given, psycho-education provided. After care discussed. Medication Change: Yes (detox changes daily) Medical Record Reviewed: Yes Mental Status Examination - Cognitive Function Orientation: Person, Place, Situation, Time Memory: Intact Attention: WNL Concentration: WNL Association: WNL Fund of Knowledge: WNL - Mood Mood: Anxious - Affect Affect: Blunted - Speech Speech: Appropriate - Formal Thought Process Formal Thought Process: No Impairment - Suicidal Ideation Suicidal Ideation: No - Homicidal Ideation Homicidal Ideation: No Goal/Treatment Plan - Goal/Treatment Plan Need for Continued Stay: Discharge may exacerbated symptoms, Severe functional impairment Progress Toward Problem(s) and Goals/Treatment Plan: Taper with methadone and librium. Gabapentin for augmentation if needed As needed medications All risks, benefits and alternatives of the meds discussed, and the pt agreed and understood. Attend groups and activities Supportive therapy and psychoeducation [place] for abstinence CBT for relapse prevention Encourage MAT Refer to rehab or IOP, and self-help groups Smoking cessation with [place] Nicotine patch if needed 34 min Estimated Date of D/C: 04/23/18
[2018-04-20] MEDS: Multiple Vitamins Tab PO SCH (16:45)
--- NOTE | 2018-04-20 17:32 | RAD ---
Date of service: 04/20/2018 HISTORY: rehab placement COMPARISON: Chest radiograph dated 01/19/2018 TECHNIQUE: Chest PA and lateral FINDINGS: LUNGS: No active pulmonary disease. PLEURA: No significant pleural effusion identified. No pneumothorax apparent. CARDIOVASCULAR: Normal. OSSEOUS STRUCTURES: Unchanged. VISUALIZED UPPER ABDOMEN: Normal. OTHER FINDINGS: None. IMPRESSION: No active disease.
[2018-04-21] MEDS: Multiple Vitamins Tab PO SCH (09:44)
--- NOTE | 2018-04-21 14:21 | PCM.PYCHPN ---
Psychiatric Progress Note - Psychiatric Progress Note Patient seen today, length of contact: 16 min Patient Chief Complaint: "I am very tired, cannot sleep well, I feel sick" Problems Identified/Issues Discussed: The pt is seen, chart reviewed, case discussed with staff. Support and psychoeducation given, CBT and PA used briefly No new symptoms reported, improving slowly and needs more time No SEs from medications, risks discussed. he is isolated and evasive After care discussed Medication Change: Yes (detox changes daily) Medical Record Reviewed: Yes Mental Status Examination - Cognitive Function Orientation: Person, Place, Situation, Time Memory: Intact Attention: WNL Concentration: WNL Association: WN Fund of Knowledge: WNL - Mood Mood: Anxious - Affect Affect: Blunted - Speech Speech: Appropriate - Formal Thought Process Formal Thought Process: No Impairment - Suicidal Ideation Suicidal Ideation: No - Homicidal Ideation Homicidal Ideation: No Goal/Treatment Plan - Goal/Treatment Plan Need for Continued Stay: Discharge may exacerbated symptoms, Severe functional impairment Progress Toward Problem(s) and Goals/Treatment Plan: Taper with methadone and librium. Gabapentin for augmentation if needed As needed medications All risks, benefits and alternatives of the meds discussed, and the pt agreed and understood. Attend groups and activities Supportive therapy and psychoeducation [place] for abstinence CBT for relapse prevention Encourage MAT Refer to rehab or IOP, and self-help groups Smoking cessation with [place] Nicotine patch if needed Estimated Date of D/C: 04/23/18
[2018-04-22] MEDS: Multiple Vitamins Tab PO SCH (10:54)
[2018-04-23 06:34] VITALS: BP 111/69; PULSE 72; RESP 16; TEMP 98.2; O2SAT 97
--- NOTE | 2018-04-23 08:27 | PCM.PYCHDC ---
Mental Status Examination - Mental Status Examination Orientation: Person Discharge Summary - Discharge Note Consultations:: List each consultation separately and include: 1. Reason for request. 2. Findings. 3. Follow-up Summary of Hospital Course include:: 1. Description of specific treatment plan utilized for patients during their course of treatmen. 2. Summarize the time- course for resolution of acute symptoms and/or regressed behaviors. 3. Describe issues identified and worked on during hospitalization. 4. Describe medication utilized. 5. Describe medical problems identified and treated. 6. 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 He is known from a December detox He admits to using 20 bags intranasal heroin (up from 15 in December) x2 years and Oxy's for one year before that. He then admitted that he also takes 4-5 of the 30 mg pills. Alcohol 1 pint karlos + 61/2 pack beers. 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 Gabapentin for augmentation if needed As needed medications All risks, benefits and alternatives of the meds discussed, and the pt agreed and understood. Attend groups and activities Supportive therapy and psychoeducation [place] for abstinence CBT for relapse prevention Encourage MAT Refer to rehab or IOP, and self-help groups Smoking cessation with [place] Nicotine patch if needed 34 min Prescriptions/Medication Reconciliation: amLODIPine [Norvasc] 10 mg PO DAILY #30 tab Aspirin [Aspirin Chewable] 81 mg PO DAILY #30 chew Losartan [Cozaar] 100 mg PO DAILY #30 tab Mirtazapine [Remeron] 30 mg PO HS #30 tab QUEtiapine [Seroquel] 200 mg PO HS #30 tab
--- NOTE | 2018-04-23 08:45 | PCM.PYCHPN ---
Psychiatric Progress Note - Psychiatric Progress Note Patient seen today, length of contact: 16 min Patient Chief Complaint: "I am withdrawing still" Problems Identified/Issues Discussed: The pt is seen, chart reviewed, case discussed with staff. The pt is compliant with medications and reports no side-effects. Symptoms are improving but needs more time to stabilize. Pt attends groups and activities but barely Still in his room a lot Support given, psycho-education provided. After care discussed., vague about after care - he is accepted to [facility] but likely will go to [facility] son Medication Change: Yes (detox changes daily) Medical Record Reviewed: Yes Mental Status Examination - Cognitive Function Orientation: Person - Mood Mood: Anxious - Affect Affect: Blunted - Speech Speech: Appropriate - Formal Thought Process Formal Thought Process: No Impairment - Suicidal Ideation Suicidal Ideation: No - Homicidal Ideation Homicidal Ideation: No Goal/Treatment Plan - Goal/Treatment Plan Need for Continued Stay: Discharge may exacerbated symptoms, Severe functional impairment Progress Toward Problem(s) and Goals/Treatment Plan: Taper with methadone and librium. Gabapentin for augmentation if needed As needed medications All risks, benefits and alternatives of the meds discussed, and the pt agreed and understood. Attend groups and activities Supportive therapy and psychoeducation [place] for abstinence CBT for relapse prevention Encourage MAT Refer to rehab or IOP, and self-help groups Smoking cessation with [place] Nicotine patch if needed Estimated Date of D/C: 04/23/18
== END 2018-04-23 08:45 | disposition home or self-care (01) | DRG 897 ==
LOC: C.ER 17:39 → C.7D 21:42
PROVIDERS: ADMIT Psychiatry & Neurology Psychiatry; ATTEND Psychiatry & Neurology Psychiatry
PROC: HZ2ZZZZ Detoxification Services for Substance Abuse Treatment (ICD-10-PCS; principal; 2018-04-18)
DX: F11.23 Opioid dependence with withdrawal (principal); F33.1 Major depressive disorder, recurrent, moderate; F10.239 Alcohol dependence with withdrawal, unspecified; F13.239 Sedative, hypnotic or anxiolytic dependence with withdrawal, unspecified; I10 Essential (primary) hypertension; F17.210 Nicotine dependence, cigarettes, uncomplicated; F43.10 Post-traumatic stress disorder, unspecified

== ENCOUNTER 2018-12-07 16:16 | Inpatient (IN) | payer MEDICARE ==
[2018-12-07 17:19] LABS: BASO % 0.5 % (0.0-2.0); EOS # 0.1 K/uL (0.0-0.7); EOS % 1.1 % (0.0-4.0); HEMOGLOBIN 12.4 g/dL (12.0-18.0); LYMPH # 2.5 K/uL (1.0-4.3); LYMPH % 50.4 % (20.0-40.0); MEAN CELL VOLUME 89.1 fL (80.0-94.0); MEAN CORPUSCULAR HEMOGLOBIN 29.5 pg (27.0-31.0); MEAN CORPUSCULAR HGB CONC 33.1 g/dL (33.0-37.0); MONO # 0.4 K/uL (0.0-0.8); MONO % 7.4 % (0.0-10.0); NEUT % 40.6 % (50.0-75.0); NRBC % 0.1 % (0.0-2.0); RBC 4.2 Mil/uL (4.40-5.90)
[2018-12-07 17:28] LABS: ALB/GLOB RATIO 1.4 (1.0-2.1); ALT/SGPT 16 U/L (21-72); AST/SGOT 32 U/L (17-59); BLOOD UREA NITROGEN 11 mg/dL (9-20); CALCIUM 9.7 mg/dl (8.6-10.4); GFR NON-AFRICAN AMERICAN > 60
[2018-12-07 17:39] LABS: BARBITURATES, UR NEGATIVE (NEGATIVE); BENZODIAZEPINES, UR NEGATIVE (NEGATIVE); PHENCYCLIDINE, UR NEGATIVE (NEGATIVE)
[2018-12-07 17:42] LABS: OPIATES, UR POSITIVE (NEGATIVE)
[2018-12-07 17:48] LABS: SQUAMOUS EPITHIAL < 1 /hpf (0-5); URINE BILIRUBIN NEGATIVE (NEGATIVE); URINE BLOOD NEGATIVE (NEGATIVE); URINE CLARITY Clear (Clear); URINE COLOR Yellow (YELLOW); URINE GLUCOSE (UA) NORMAL (Normal); URINE LEUKOCYTE ESTERASE NEG Leu/uL (Negative); URINE PROTEIN NEGATIVE (NEGATIVE); URINE UROBILINOGEN NORMAL mg/dL (0.2-1.0)
--- NOTE | 2018-12-07 17:48 | C.PDOC ---
History Of Present Illness 48 year old male present to ED requesting opiate and alcohol detox. Patient states that he snorts 20 bags of heroin/day. He states that his last use was at 3pm and he also drank beer at 11am. Patient admits to chronic low back pain. He denies any current physical complaints. Time Seen by Provider: 12/07/18 16:42 Chief Complaint (Nursing): Substance Abuse History Per: Patient History/Exam Limitations: no limitations Onset/Duration Of Symptoms: Other (requesting detox) Suicide/Self Injury Attempted (Context): None Modifying Factor(s): Alcohol, Narcotics Associated Symptoms: denies: Suicidal Thoughts, Suicidal Plan Past Medical History Reviewed: Historical Data, Nursing Documentation, Vital Signs Vital Signs: Last Vital Signs Temp 98.2 F 12/07/18 16:18 Pulse 92 H 12/07/18 16:18 Resp 18 12/07/18 16:18 BP 157/80 H 12/07/18 16:18 Pulse Ox 99 12/07/18 16:18 - Medical History PMH: HTN, Hypercholesterolemia, Post Traumatic Stress Disorder, 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) Surgical History: No Surg Hx - [facility] DETOXIFICATION SERVICES FOR SUBSTANCE ABUSE TREATMENT (04/18/18) Family History: States: No Known Family Hx - Social History Hx Alcohol Use: Yes Hx Substance Use: Yes - Immunization History Hx Tetanus Toxoid Vaccination: Yes Hx Influenza Vaccination: Yes (05/2017) Hx Pneumococcal Vaccination: Yes (05/2017) Review Of Systems Constitutional: Negative for: Fever, Chills, Weakness Cardiovascular: Negative for: Chest Pain Respiratory: Negative for: Cough, Shortness of Breath, Sputum Gastrointestinal: Negative for: Nausea, Vomiting, Diarrhea Musculoskeletal: Positive for: Back Pain (chronic) Psych: Positive for: Other (alcohol and opiate dependence) Physical Exam - Physical Exam Appears: Well, Non-toxic, No Acute Distress Skin: Normal Color, Warm, Dry Head: Normacephalic Oral Mucosa: Moist Neck: Supple Cardiovascular: Rhythm Regular Respiratory: Normal Breath Sounds, No Accessory Muscle Use, No Rales, No Rhonchi, No Wheezing Gastrointestinal/Abdominal: Normal Exam, Bowel Sounds, Soft, No Tenderness Extremity: Bilateral: Atraumatic, Normal Color And Temperature, Normal ROM Neurological/Psych: Oriented x3 ED Course And Treatment - Laboratory Results Result Diagrams: 12/07/18 17:08 12/07/18 17:08 Lab Results: Total Bilirubin 0.3 mg/dL (0.2-1.3) 12/07/18 17:08 AST 32 U/L (17-59) 12/07/18 17:08 ALT 16 U/L (21-72) L D 12/07/18 17:08 Alkaline Phosphatase 72 U/L (38-126) 12/07/18 17:08 Total Protein 8.6 g/dL (6.3-8.3) H 12/07/18 17:08 Albumin 5.0 g/dL (3.5-5.0) 12/07/18 17:08 Globulin 3.7 gm/dL (2.2-3.9) 12/07/18 17:08 Albumin/Globulin Ratio 1.4 (1.0-2.1) 12/07/18 17:08 O2 Sat by Pulse Oximetry: 99 (ra) Pulse Ox Interpretation: Normal Progress Note: Blood work, UA, UDS ordered and reviewed. 6:10pm- Patient medically cleared. Patient accepted by Dr. Lewis for opiate dependence obs detox. Disposition - Disposition Disposition: HOSPITALIZED Disposition Time: 18:13 Condition: STABLE - Clinical Impression Clinical Impression: Opioid use disorder, severe, dependence - Scribe Statement The provider has reviewed the documentation as recorded by the Scribe (Jovita Boateng) All medical record entries made by the Scribe were at my direction and persona lly dictated by me. I have reviewed the chart and agree that the record accurately reflects my personal performance of the history, physical exam, medical decision making, and the department course for this patient. I have also personally directed, reviewed, and agree with the discharge instructions and disposition. Decision To Admit - Pt Status Changed To: Hospital Disposition Of: Observation - . Bed Request Type: Detox Admitting Physician: Dave Lewis Patient Diagnosis: Opioid use disorder, severe, dependence
--- NOTE | 2018-12-07 19:26 | PCM.BM ---
<Debra Odonnell - Last Filed: 12/07/18 19:25> Treatment Plan Problems - Problems identified on initial assessmt Defensive Coping Date Initiated: 12/07/18 Time Initiated: 19:25 Assessment reference: NA Status: Active Chronic Low Self Esteem Date Initiated: 12/07/18 Time Initiated: 19:25 Assessment reference: NA Status: Active Low Motivation to Change Date Initiated: 12/07/18 Time Initiated: 19:26 Assessment reference: NA Status: Active Treatment assets and liabiliti Patient Assests: cooperative, ADL independent, negotiates basic needs, cognitively intact Patient Liabilities: substance abuse, medical problems - Milieu Protocol Maintain good personal hygiene: daily Encourage regular showers, daily Remind patient to perform daily oral care, daily Assist patient to perform ADL's Conduct patient checks and document Observation sheet: Q15 minutes Maintain personal safety: every shift Educate patient to report safety concerns to staff, every shift Monitor environment for contraband/sharps Medication safety: Monitor for expected outcome, potential side effects: every shift, Assess barriers to learning: every shift, Assess readiness for medication education: every shift <EliAlthea - Last Filed: 12/10/18 14:35> - Diagnosis (1) Alcohol use disorder, severe, dependence Status: Acute Interventions: 12/09/18 14:34 * Assess 7x/week regarding severity of withdrawal * Educate regarding risks, benefits, side effects and alternatives of medications * Use Motivational Interviewing for abstinence * Use CBT for relapse prevention * Medication management for withdrawal symptoms * Encourage medication assisted treatment * (2) Opioid use disorder, severe, dependence Status: Acute Interventions: 12/09/18 14:35 * Assess 7x/week regarding severity of withdrawal * Educate regarding risks, benefits, side effects and alternatives of medicati ons * Use Motivational Interviewing for abstinence * Use CBT for relapse prevention * Medication management for withdrawal symptoms * Encourage medication assisted treatment *
[2018-12-08] MEDS ORDERED: Aluminum Hydroxide/Magnesium Hydroxide Susp (30 mL) PO PRN (15:23)
--- NOTE | 2018-12-08 15:23 | PCM.PSYCH ---
Initial Psychiatric Evaluation - Initial Psychiatric Evaluation Type of Admission: Voluntary Legal Status: Capacity Chief Complaint (in patient's own words): "I need detox" History of Present Illness and Precipitating Events: Pt started to withdraw and he will now be converted from OBS to INPAT status. The pt is seen, chart reviewed and case discussed. He is a 48 y/o AAM, single, lives alone, is on disability due to knee problems He admits to using 1 pint of alcohol and 6 beers, and on top of that he uses 20 bags heroin intranasally. He started both 3 years ago but had 4 detoxes already. No rehab or MAT. Denies other drugs, smokes 5-6 cig per day He has cramps, nausea, midriasis, piloerection, restlessness, anxiety and significant irritability. COWS>11 He also has tremors, anxiety, mild sweating from alcohol. Of note, he has had DTs in the past. No seizures. Since he used yesterday he was not like this in AM when first seen. He also feels depressed and very anxious. He reports PTSD sxs and claims he was not properly treated. 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 He is on high doses of remeron and seroquel and he claims only with them can he sleep and "calm down a little." He also admits to not being compliant with these meds always. Not acutely suicidal but has had passive wishes many times. He says his family don't want to be around him. Past psych hx: Admitted to psych at [facility] with suicidal ideation less than a year ago. Used many meds Medical hx: HTN, s/p knee surgery. Obese. Somewhat compliant with meds Family psych hx: None Current Medications: Active Medications Generic Name Dose Route Start Last Admin Trade Name Freq PRN Reason Stop Dose Admin Mirtazapine 45 mg 12/07/18 22:00 12/07/18 21:38 Remeron PO 45 mg HS WOJCIECH Administration Quetiapine Fumarate 400 mg 12/07/18 22:00 12/07/18 21:38 Seroquel PO 400 mg HS WOJCIECH Administration Rosuvastatin Calcium 5 mg 12/07/18 22:00 12/07/18 21:32 Crestor PO Not Given HS WOJCIECH Trazodone HCl 50 mg 12/07/18 20:12 12/07/18 21:28 Desyrel PO 50 mg HS PRN Administration Insomnia Past Psychiatric History - Past Psychiatric History Previous Treatment History: Inpatient Pertinent Medical Hx (Current Medical&Sleep Prob, Allergies): Allergies Allergy/AdvReac Type Severity Reaction Status Date / Time codeine Allergy Severe ANAPHYLAXIS Verified 04/18/18 17:44 Mirtazapine [Remeron] 45 mg PO HS 01/07/18 Prazosin HCL [Minipress] 2 mg PO HS #30 cap 01/12/18 Rosuvastatin Calcium [Crestor] 5 mg PO HS #30 tab 01/12/18 traZODone [Desyrel] 100 mg PO HS PRN #30 tab 01/12/18 Aspirin [Aspirin Chewable] 81 mg PO DAILY #30 chew 04/22/18 Losartan [Cozaar] 100 mg PO DAILY #30 tab 04/22/18 amLODIPine [Norvasc] 10 mg PO DAILY #30 tab 04/22/18 QUEtiapine [Seroquel] 400 mg PO HS 12/07/18 Review of Systems - Neurological Neurological: Tremor - Psychiatric Psychiatric: Abnormal Sleep Pattern, Anhedonia, Anxiety, Behavioral Changes, Change in Appetite, Depression, Difficulty Concentrating, Irritability, Mood Swings. absent: Hallucinations, Homicidal Ideation, Paranoia, Suicidal Ideation Mental Status Examination - Personal Presentation Personal Presentation: Looks older than stated age (odd, poor eye contact, slowed, looks like intel.-challanged almost) - Affect Affect: Blunted - Motor Activity Motor Activity: Psychomotor Retardation - Reliability in Providing Information Reliability in Providing Information: Poor, due to altered mood - Speech Speech: Organized (but slowed) - Mood Mood: Depressed, Anxious - Formal Thought Process Formal Thought Process: No Impairment - Cognitive Functions Orientation: Person, Place, Situation, Time Sensorium: Drowsy Attention/Concentration: Easily distracted Abstract Thinking: [place] Estimate of Intelligence: Below average Judgement: Intact, as evidence by: Insight regarding need for hospitalization Memory: Recent intact, as evidence by: Ability to recall events of the day, Remote impaired as evidenced by: Inability to recall sig life events - Risk Risk: Withdrawal, Diminished functioning - Strength & Assets Inventory Strength & Assets Inventory: Cooperative - Limitations Limitations: Other DSM 5 DX - DSM 5 DSM 5 Diagnosis: Opioid withdrawal Alcohol withdrawal Opioid use d/o - severe Alcohol use d/o - severe Major depression, recurrent, severe, w/o psychosis PTSD - Recommended/Plan of Treatment Treatment Recommendations and Plan of Treatment: Taper with methadone and librium Resume seroquel and remeron Gabapentin for augmentation if needed As needed medications All risks, benefits and alternatives of the meds discussed, and the pt agreed and understood. Attend groups and activities Supportive therapy and psychoeducation [place] for abstinence CBT for relapse prevention Encourage MAT Refer to rehab or IOP, and self-help groups Teach healthy lifestyle methods, i.e. diet, exercise, meditation Smoking cessation with [place] Nicotine patch if needed 34 min Projected ELOS: 5 days Prognosis: good - Smoking Cessation Smoking Cessation Initiated: Yes
[2018-12-08] MEDS: Multiple Vitamins Tab PO SCH (15:49)
[2018-12-09] MEDS: Multiple Vitamins Tab PO SCH (10:01)
[2018-12-10] MEDS: Multiple Vitamins Tab PO SCH (09:43)
--- NOTE | 2018-12-10 15:00 | PCM.PYCHPN ---
Psychiatric Progress Note - Psychiatric Progress Note Patient seen today, length of contact: 18 min Patient Chief Complaint: "I'm sick" Problems Identified/Issues Discussed: The pt is seen, chart reviewed, case discussed with staff. The pt is compliant with medications and reports no side-effects. Symptoms are improving but needs more time to stabilize. Pt attends groups and activities. Support given, psycho-education provided. After care discussed. Medication Change: Yes (detox changes daily) Medical Record Reviewed: Yes Mental Status Examination - Cognitive Function Orientation: Person, Place, Situation, Time Memory: Impaired Attention: Poor Concentration: Poor Association: WNL Fund of Knowledge: Poor - Mood Mood: Depressed, Anxious - Affect Affect: Blunted - Speech Speech: Appropriate - Formal Thought Process Formal Thought Process: No Impairment - Suicidal Ideation Suicidal Ideation: No - Homicidal Ideation Homicidal Ideation: No Goal/Treatment Plan - Goal/Treatment Plan Need for Continued Stay: Discharge may exacerbated symptoms, Severe functional impairment Progress Toward Problem(s) and Goals/Treatment Plan: Taper with methadone and librium Resume seroquel and remeron Gabapentin for augmentation if needed As needed medications All risks, benefits and alternatives of the meds discussed, and the pt agreed and understood. Attend groups and activities Supportive therapy and psychoeducation [place] for abstinence CBT for relapse prevention Encourage MAT Refer to rehab or IOP, and self-help groups Teach healthy lifestyle methods, i.e. diet, exercise, meditation Smoking cessation with [place] Nicotine patch if needed
--- NOTE | 2018-12-10 15:00 | PCM.PYCHPN ---
Psychiatric Progress Note - Psychiatric Progress Note Patient seen today, length of contact: 16 min Patient Chief Complaint: "I'm sick" Problems Identified/Issues Discussed: The pt is seen, chart reviewed, case discussed with staff. The pt is compliant with medications and reports no side-effects. Symptoms are improving but needs more time to stabilize. Pt attends groups and activities. Support given, psycho-education provided. After care discussed. Medication Change: Yes (detox changes daily) Medical Record Reviewed: Yes Mental Status Examination - Cognitive Function Orientation: Person, Place, Situation, Time Memory: Impaired Attention: Poor Concentration: Poor Association: WNL Fund of Knowledge: Poor - Mood Mood: Depressed, Anxious - Affect Affect: Blunted - Speech Speech: Appropriate - Formal Thought Process Formal Thought Process: No Impairment - Suicidal Ideation Suicidal Ideation: No - Homicidal Ideation Homicidal Ideation: No Goal/Treatment Plan - Goal/Treatment Plan Need for Continued Stay: Discharge may exacerbated symptoms, Severe functional impairment Progress Toward Problem(s) and Goals/Treatment Plan: Taper with methadone and librium Resume seroquel and remeron Gabapentin for augmentation if needed As needed medications All risks, benefits and alternatives of the meds discussed, and the pt agreed and understood. Attend groups and activities Supportive therapy and psychoeducation [place] for abstinence CBT for relapse prevention Encourage MAT Refer to rehab or IOP, and self-help groups Teach healthy lifestyle methods, i.e. diet, exercise, meditation Smoking cessation with [place] Nicotine patch if needed
[2018-12-11] MEDS: Multiple Vitamins Tab PO SCH (10:20)
--- NOTE | 2018-12-11 23:47 | PCM.PYCHPN ---
Psychiatric Progress Note - Psychiatric Progress Note Patient seen today, length of contact: 16 min Patient Chief Complaint: "I'm sick" Problems Identified/Issues Discussed: The pt is seen, chart reviewed, case discussed with staff. The pt is compliant with medications and reports no side-effects. Symptoms are improving but needs more time to stabilize. Pt attends groups and activities. Support given, psycho-education provided. After care discussed. Medication Change: Yes (detox changes daily) Medical Record Reviewed: Yes Mental Status Examination - Cognitive Function Orientation: Person, Place, Situation, Time Memory: Impaired Attention: Poor Concentration: Poor Association: WNL Fund of Knowledge: Poor - Mood Mood: Depressed, Anxious - Affect Affect: Blunted - Speech Speech: Appropriate - Formal Thought Process Formal Thought Process: No Impairment - Suicidal Ideation Suicidal Ideation: No - Homicidal Ideation Homicidal Ideation: No Goal/Treatment Plan - Goal/Treatment Plan Need for Continued Stay: Discharge may exacerbated symptoms, Severe functional impairment Progress Toward Problem(s) and Goals/Treatment Plan: Taper with methadone and librium Resume seroquel and remeron Gabapentin for augmentation if needed As needed medications All risks, benefits and alternatives of the meds discussed, and the pt agreed and understood. Attend groups and activities Supportive therapy and psychoeducation [place] for abstinence CBT for relapse prevention Encourage MAT Refer to rehab or IOP, and self-help groups Teach healthy lifestyle methods, i.e. diet, exercise, meditation Smoking cessation with [place] Nicotine patch if needed
[2018-12-12] MEDS: Multiple Vitamins Tab PO SCH (10:23)
--- NOTE | 2018-12-12 15:26 | PCM.PYCHPN ---
Psychiatric Progress Note - Psychiatric Progress Note Patient seen today, length of contact: 15 min Patient Chief Complaint: "I'm sick" Problems Identified/Issues Discussed: The pt is seen, chart reviewed, case discussed with staff. The pt is compliant with medications and reports no side-effects. Symptoms are improving but needs more time to stabilize. Pt attends groups and activities. Support given, psycho-education provided. After care discussed. Medication Change: Yes (detox changes daily) Medical Record Reviewed: Yes Mental Status Examination - Cognitive Function Orientation: Person, Place, Situation, Time Memory: Impaired Attention: Poor Concentration: Poor Association: WNL Fund of Knowledge: Poor - Mood Mood: Depressed, Anxious - Affect Affect: Blunted - Speech Speech: Appropriate - Formal Thought Process Formal Thought Process: No Impairment - Suicidal Ideation Suicidal Ideation: No - Homicidal Ideation Homicidal Ideation: No Goal/Treatment Plan - Goal/Treatment Plan Need for Continued Stay: Discharge may exacerbated symptoms, Severe functional impairment Progress Toward Problem(s) and Goals/Treatment Plan: Taper with methadone and librium Resume seroquel and remeron Gabapentin for augmentation if needed As needed medications All risks, benefits and alternatives of the meds discussed, and the pt agreed and understood. Attend groups and activities Supportive therapy and psychoeducation [place] for abstinence CBT for relapse prevention Encourage MAT Refer to rehab or IOP, and self-help groups Teach healthy lifestyle methods, i.e. diet, exercise, meditation Smoking cessation with [place] Nicotine patch if needed
--- NOTE | 2018-12-13 08:50 | PCM.PYCHDC ---
Mental Status Examination - Mental Status Examination Orientation: Person Discharge Summary - Discharge Note Consultations:: List each consultation separately and include: 1. Reason for request. 2. Findings. 3. Follow-up Summary of Hospital Course include:: 1. Description of specific treatment plan utilized for patients during their course of treatmen. 2. Summarize the time- course for resolution of acute symptoms and/or regressed behaviors. 3. Describe issues identified and worked on during hospitalization. 4. Describe medication utilized. 5. Describe medical problems identified and treated. 6. Reassessment of suicide risk Summary of Hospital Course: Pt started to withdraw and he will now be converted from OBS to INPAT status. The pt is seen, chart reviewed and case discussed. He is a 48 y/o AAM, single, lives alone, is on disability due to knee problems He admits to using 1 pint of alcohol and 6 beers, and on top of that he uses 20 bags heroin intranasally. He started both 3 years ago but had 4 detoxes already. No rehab or MAT. Denies other drugs, smokes 5-6 cig per day He has cramps, nausea, midriasis, piloerection, restlessness, anxiety and significant irritability. COWS>11 He also has tremors, anxiety, mild sweating from alcohol. Of note, he has had DTs in the past. No seizures. Since he used yesterday he was not like this in AM when first seen. He also feels depressed and very anxious. He reports PTSD sxs and claims he was not properly treated. 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 He is on high doses of remeron and seroquel and he claims only with them can he sleep and "calm down a little." He also admits to not being compliant with these meds always. Not acutely suicidal but has had passive wishes many times. He says his family don't want to be around him. Past psych hx: Admitted to psych at [facility] with suicidal ideation less than a year ago. Used many meds Medical hx: HTN, s/p knee surgery. Obese. Somewhat compliant with meds Family psych hx: None He will go to [facility] but he may not, as he was unmotivated and aloof. He stayed an extra day due to withdrawals and still doesn't feel well . - Diagnosis (1) Alcohol use disorder, severe, dependence Current Visit: No Status: Acute (2) Opioid use disorder, severe, dependence Current Visit: Yes Status: Acute - Final Diagnosis (DSM 5) Condition upon Discharge: STABLE Disposition: HOME/ ROUTINE Follow-up Treatment Plan: Taper with methadone and librium Resume seroquel and remeron Gabapentin for augmentation if needed As needed medications All risks, benefits and alternatives of the meds discussed, and the pt agreed and understood. Attend groups and activities Supportive therapy and psychoeducation [place] for abstinence CBT for relapse prevention Encourage MAT Refer to rehab or IOP, and self-help groups Teach healthy lifestyle methods, i.e. diet, exercise, meditation Smoking cessation with [place] Nicotine patch if needed Prescriptions/Medication Reconciliation: amLODIPine [Norvasc] 10 mg PO DAILY #30 tab Aspirin [Aspirin Chewable] 81 mg PO DAILY #30 chew Gabapentin [Neurontin] 300 mg PO BID #60 cap Losartan [Cozaar] 100 mg PO DAILY #30 tab Mirtazapine [Remeron] 45 mg PO HS #30 tab QUEtiapine [SEROquel] 400 mg PO HS #60 tab Rosuvastatin Calcium [Crestor] 10 mg PO HS #30 tab traZODone [Desyrel] 100 mg PO HS PRN #30 tab PRN Reason: Insomnia
[2018-12-13 09:13] VITALS: BP 114/70; PULSE 73; RESP 20; TEMP 97.9; O2SAT 73
[2018-12-13] MEDS: Multiple Vitamins Tab PO SCH (09:18)
== END 2018-12-13 09:45 | disposition home or self-care (01) | DRG 895 ==
LOC: C.ER 16:16 → C.7D 18:13 → INTOOBSV 18:13 → OBSVTOIN 12-08 15:40
PROC: HZ52ZZZ Individual Psychotherapy for Substance Abuse Treatment, Cognitive-Behavioral (ICD-10-PCS; principal; 2018-12-08)
PROC: HZ2ZZZZ Detoxification Services for Substance Abuse Treatment (ICD-10-PCS; 2018-12-08)
PROC: HZ59ZZZ Individual Psychotherapy for Substance Abuse Treatment, Supportive (ICD-10-PCS; 2018-12-08)
PROC: HZ56ZZZ Individual Psychotherapy for Substance Abuse Treatment, Psychoeducation (ICD-10-PCS; 2018-12-08)
PROC: HZ42ZZZ Group Counseling for Substance Abuse Treatment, Cognitive-Behavioral (ICD-10-PCS; 2018-12-08)
PROC: HZ46ZZZ Group Counseling for Substance Abuse Treatment, Psychoeducation (ICD-10-PCS; 2018-12-08)
PROC: GZHZZZZ Group Psychotherapy (ICD-10-PCS; 2018-12-08)
PROC: GZ58ZZZ Individual Psychotherapy, Cognitive-Behavioral (ICD-10-PCS; 2018-12-08)
PROC: GZ56ZZZ Individual Psychotherapy, Supportive (ICD-10-PCS; 2018-12-08)
DX: F10.230 Alcohol dependence with withdrawal, uncomplicated (principal); F33.2 Major depressive disorder, recurrent severe without psychotic features; F11.23 Opioid dependence with withdrawal; Y90.0 Blood alcohol level of less than 20 mg/100 ml; E78.00 Pure hypercholesterolemia, unspecified; F43.10 Post-traumatic stress disorder, unspecified; I10 Essential (primary) hypertension; F41.9 Anxiety disorder, unspecified; E66.9 Obesity, unspecified